=== PATIENT | female | born 1985 | race Caucasian/White ===

== ENCOUNTER 2016-08-13 19:45 | Outpatient (CLI) | payer BC ==
[~2016-08-13] VITALS: Ht 167.6 cm; Wt 112.0 kg
[~2016-08-13 19:45] MED LIST: PRENATAL TABLE1 EAC3 PO; TUMS500 MG PO; TYLENOL EXTRA500 MG PO
[2016-08-13 20:07] VITALS: BP 136/68
[2016-08-13] MEDS ORDERED: ZANTAC150 MG PO (20:11)
== END 2016-08-13 23:05 | disposition home or self-care (01) ==
LOC: LDRP-OP 19:45 → 2WEST 19:46 → LDRP-OP 09-10 14:16
DX: O47.9 False labor, unspecified (principal); Z3A.00 Weeks of gestation of pregnancy not specified
CPT/HCPCS: 59025; G0378

== ENCOUNTER 2016-08-14 23:49 | Inpatient (IN) | payer BC ==
[~2016-08-14] VITALS: Ht 167.6 cm; Wt 111.0 kg
[~2016-08-14 23:49] MED LIST changes: +ZANTAC150 MG PO
[2016-08-15] VITALS (31 sets, daily range): BP systolic 111–185; BP diastolic 55–73
[2016-08-15 01:26] LABS: EOSINOPHIL (%) 0.1 % (0-5); HEMATOCRIT 36.6 % (36.0-46.0); IMMATURE GRANULOCYTE COUNT 0.2 K/uL; INSTRUMENT ABS NEUTROPHIL CT 17.3 K/uL; LYMPHOCYTE COUNT 2.2 K/uL (1.0-2.8); MCH 27.9 PG (29.0-34.0); MCHC 33.3 G/DL (30.0-36.0); MCV 83.6 FL (83-99); MEAN PLAT.VOLUME 11.5 uM^3 (9.5-12.4); MONOCYTE (%) 5.1 % (3-12); MONOCYTE COUNT 1.1 K/uL (0-0.8); NEUTROPHIL (%) 83.2 % (45-76); NEUTROPHIL COUNT 17.3 K/uL (1.8-6.4); PLATELET COUNT 361 K/uL (156-360); RBC DIS.WIDTH-CV 13.7 % (11.8-14.6); RBC DIS.WIDTH-SD 42.3 % (39-53); RED BLOOD COUNT 4.38 M/uL (3.80-5.20); WHITE BLOOD COUNT 20.7 K/uL (4.1-10.2)
[2016-08-16 07:10] LABS: HEMATOCRIT 30.1 % (36.0-46.0); MCH 27.8 PG (29.0-34.0); MCHC 32.9 G/DL (30.0-36.0); MCV 84.6 FL (83-99); RBC DIS.WIDTH-CV 13.9 % (11.8-14.6); RBC DIS.WIDTH-SD 43.6 % (39-53); RED BLOOD COUNT 3.56 M/uL (3.80-5.20); WHITE BLOOD COUNT 16.2 K/uL (4.1-10.2)
[2016-08-16 07:32] LABS: EOSINOPHIL (%) 0.4 % (0-5); EOSINOPHIL COUNT 0.1 K/uL (0-0.3); IMMATURE GRANULOCYTE (%) 0.8 % (0.0-0.7); IMMATURE GRANULOCYTE COUNT 0.1 K/uL; INSTRUMENT ABS NEUTROPHIL CT 12.5 K/uL; LYMPHOCYTE COUNT 2.4 K/uL (1.0-2.8); MONOCYTE (%) 6.5 % (3-12); MONOCYTE COUNT 1.1 K/uL (0-0.8); NEUTROPHIL COUNT 12.5 K/uL (1.8-6.4); PLATELET CLUMPS PRESENT - PLATELET COUNT APPEARS ADQ.; PLATELET COUNT UNABLE TO REPORT K/uL (156-360)
[2016-08-16 08:12] VITALS: BP 113/56
[2016-08-16 16:09] VITALS: BP 131/64
[2016-08-16 23:34] VITALS: BP 123/76
[2016-08-17 07:24] VITALS: BP 127/68
[2016-08-17] MEDS ORDERED: LEXAPRO10 MG PO (11:45)
[2016-08-17] MEDS ORDERED: IBUPROFEN800 MG PO (12:49)
== END 2016-08-17 13:50 | disposition home or self-care (01) | DRG 775 ==
LOC: LDRP-OP 23:49 → 2WEST 23:50 → LDRP-OP 09-10 23:30
PROVIDERS: Midwife; Obstetrics & Gynecology
PROC: 0KQM0ZZ Repair Perineum Muscle, Open Approach (ICD-10-PCS; principal; 2016-08-15)
PROC: 10907ZC Drainage of Amniotic Fluid, Therapeutic from Products of Conception, Via Natural or Artificial Opening (ICD-10-PCS; principal; 2016-08-15)
PROC: 10E0XZZ Delivery of Products of Conception, External Approach (ICD-10-PCS; principal; 2016-08-15)
PROC: 00HU33Z Insertion of Infusion Device into Spinal Canal, Percutaneous Approach (ICD-10-PCS; 2016-08-15)
PROC: 3E0S3CZ (ICD-10-PCS; 2016-08-15)
DX: O70.1 Second degree perineal laceration during delivery (principal); Z3A.40 40 weeks gestation of pregnancy; Z37.0 Single live birth; E66.9 Obesity, unspecified; O99.214 Obesity complicating childbirth
CPT/HCPCS: 85025; C1755; G0378; J0595; J3010; J7120

== ENCOUNTER 2017-05-29 19:10 | Emergency (ER) | payer BC ==
[~2017-05-29] VITALS: Ht 167.6 cm; Wt 108.5 kg
[~2017-05-29 19:10] MED LIST changes: +IBUPROFEN800 MG PO; +LEXAPRO10 MG PO
[2017-05-29 21:12] VITALS: BP 169/89
== END 2017-05-29 21:12 | disposition home or self-care (01) ==
LOC: EME 19:10 → EXP 19:10
DX: S16.1XXA Strain of muscle, fascia and tendon at neck level, initial encounter (principal); S43.401A Unspecified sprain of right shoulder joint, initial encounter; M62.838 Other muscle spasm; X58.XXXA Exposure to other specified factors, initial encounter; Z87.891 Personal history of nicotine dependence
CPT/HCPCS: 93005; 99281; 99283